=== PATIENT | male | born 1945 ===

== ENCOUNTER 2021-06-17 07:22 | Emergency (ER) | payer OTHER ==
[~2021-06-17] VITALS: Ht 182.9 cm; Wt 136.1 kg
[2021-06-17] MEDS ORDERED: DEXTROSE (50%) 50ML SYRG IV ONE ×2 (07:45→10:15)
[2021-06-17] MEDS ORDERED: KETOROLAC TROMETH 30 MG/ML 1ML VIAL IV ONE (10:15)
[2021-06-17 10:27] LABS: Basophils # (auto) 0.1 10 ^3/uL (0-0.2); Basophils % (auto) 0.6 % (0.0-2.0); Eosinophils # (auto) 0 10 ^3/uL (0-0.8); Eosinophils % (auto) 0.1 % (0.0-7.0); Hematocrit 44.7 % (41.0-53.0); Hemoglobin 14.9 g/dL (13.5-17.5); Lymphocytes # (auto) 1.1 10 ^3/uL (0.4-5.4); Lymphocytes % (auto) 8.3 % (10.0-50.0); Mean Corpuscular Hemoglobin 31.3 pg (28.0-32.0); Mean Corpuscular Hgb Conc. 33.3 g/dL (32.0-36.0); Monocytes # (auto) 1.2 10 ^3/uL (0-1.3); Monocytes % (auto) 9.2 % (0.0-12.0); Neutrophils # (auto) 10.5 10 ^3/uL (1.6-8.6); Neutrophils % (auto) 81.8 % (37.0-80.0); Nucleated Red Blood Cells % 0.1 %; Red Blood Cells 4.75 10^6/uL (4.5-5.90); Red Cell Distribution Width 14.2 % (11.8-14.3); White Blood Cell 12.8 10^3/uL (4.4-10.8)
[2021-06-17 10:44] LABS: Albumin 3.3 g/dL (3.4-5.0); Calcium 8.5 mg/dL (8.5-10.1); Potassium 4.1 mmol/L (3.5-5.1)
[2021-06-17 10:47] LABS: BUN/Creatinine Ratio 10.1; Bilirubin, Total 0.4 mg/dL (0.2-1.0); Total Protein 7.1 g/dL (6.4-8.2)
[2021-06-17 12:18] VITALS: BP 172/81
== END 2021-06-17 12:20 | disposition home or self-care (01) ==
LOC: ER 07:22 → EDBD 07:22 → ER 12:20
DX: E11.649 Type 2 diabetes mellitus with hypoglycemia without coma (principal); Z88.0 Allergy status to penicillin
CPT/HCPCS: 36415; 80053; 82962; 85025; 93005; 96374; 96375; 96376; 99285; J1885; J7042